=== PATIENT | male | born 1975 | race Two or more races ===

== ENCOUNTER 2023-12-20 13:08 | Inpatient (IN) | payer OTHER ==
[2023-12-20 13:51] VITALS: BMI 37.1
[2023-12-20] MEDS ORDERED: MAG HYDROX/AL HYDROX/SIMETH 30 ML UNIT-DOSE CUP PO PRN (16:26)
[2023-12-20] MEDS ORDERED: LOPERAMIDE HCL 2 MG CAPSULE PO PRN (16:26)
[2023-12-20] MEDS ORDERED: NALOXONE (NYS OPIOID OVERDOSE PROGRAM) 4 MG/0.1 ML SPRAY NS PRN (16:26)
[2023-12-20] MEDS ORDERED: guaiFENesin 600 MG TABLET.ER (FP) PO PRN (16:26)
[2023-12-20] MEDS ORDERED: hydrOXYzine PAMOATE 25 MG CAPSULE (FP) PO PRN (16:26)
[2023-12-20] MEDS ORDERED: IBUPROFEN 400 MG TABLET (FP) PO PRN (16:26)
[2023-12-20] MEDS ORDERED: BISMUTH SUBSALICYLATE 524 MG/30 ML PO PRN (16:26)
[2023-12-20] MEDS ORDERED: MAGNESIUM HYDROX 2400MG/30ML ORAL SUSPENSION 30 ML CUP PO PRN (16:26)
[2023-12-20] MEDS ORDERED: IBUPROFEN 600 MG TABLET (FP) PO PRN (16:26)
[2023-12-20] MEDS ORDERED: ONDANSETRON *ODT* 4 MG TABLET SL PRN (16:26)
[2023-12-20] MEDS ORDERED: BENZOCAINE/MENTHOL (CHLORASEPTIC ) LOZENGE MM PRN (16:26)
[2023-12-20] MEDS ORDERED: POLYETHYLENE GLYCOL (HEALTHYLAX) 3350 17 GM PACKET PO PRN (16:26)
[2023-12-20] MEDS ORDERED: BENZONATATE 200 MG CAPSULE PO PRN (16:26)
[2023-12-20] MEDS ORDERED: NALOXONE (NARCAN) HCL 4 MG/0.1 ML SPRAY NS PRN (16:26)
[2023-12-20] MEDS ORDERED: chlordiazePOXIDE HCL 25 MG CAPSULE PO PRN (16:31)
[2023-12-20] MEDS ORDERED: ACETAMINOPHEN 325 MG TABLET (FP) PO PRN (16:33)
[2023-12-20] MEDS ORDERED: ACETAMINOPHEN 325 MG TABLET (FP) ONE (17:20)
[2023-12-20] MEDS ORDERED: METOPROLOL TARTRATE 25 MG TABLET (FP) ONE (17:21)
[2023-12-20] MEDS ORDERED: PRENATAL VITAMINS W/ FOLIC ACID TABLET (FP) PO ONE (17:21)
[2023-12-20] MEDS ORDERED: ONDANSETRON *ODT* 4 MG TABLET ONE (17:21)
[2023-12-20] MEDS: ACETAMINOPHEN 325 MG TABLET (FP) PO ONE (17:26)
[2023-12-20] MEDS: PRENATAL VITAMINS W/ FOLIC ACID TABLET (FP) PO SCH (17:27)
[2023-12-20] MEDS: ONDANSETRON *ODT* 4 MG TABLET SL ONE (17:28)
[2023-12-20] MEDS: FUROSEMIDE 20 MG TABLET (FP) PO SCH (17:48)
[2023-12-20] MEDS: PANTOPRAZOLE 20 MG TABLET PO SCH (17:48)
[2023-12-20] MEDS ORDERED: ALBUTEROL SO4 HFA INHALER IH PRN (19:35)
[2023-12-20] MEDS: ACETAMINOPHEN 325 MG TABLET (FP) PO PRN (21:54)
[2023-12-20] MEDS: METHOCARBAMOL 500 MG TABLET PO PRN (21:54)
[2023-12-20] MEDS: APIXABAN 5 MG TABLET PO SCH (21:54)
[2023-12-20] MEDS: GABAPENTIN 300 MG CAPSULE PO SCH (21:54)
[2023-12-20] MEDS: MELATONIN 5 MG TABLETS PO SCH (21:55)
[2023-12-20] MEDS: THIAMINE 100 MG TABLET PO SCH (21:55)
[2023-12-20] MEDS: chlordiazePOXIDE HCL 25 MG CAPSULE PO SCH (22:09)
[2023-12-21] MEDS: FLU VACCINE (FLULAVAL) PF 45 MCG/0.5 ML SYRINGE 2024-2025 IM ONE (10:30)
[2023-12-21] MEDS: amLODIPine BESYLATE 5 MG TABLET (FP) PO SCH (10:30)
[2023-12-21] MEDS: NALTREXONE HCL 50 MG TABLET PO SCH (10:33)
[2023-12-21] MEDS: SERTRALINE HCL 50 MG TABLET (FP) PO SCH (11:59)
[2023-12-21] MEDS: DICYCLOMINE HCL 10 MG CAPSULE PO PRN (16:16)
[2023-12-21 17:16] VITALS: BP 145/101; PULSE 80; RESP 16; TEMP 98
[2023-12-21 17:42] LABS: HEMATOCRIT 48.5 % (35.4-49); HEMOGLOBIN 16.5 GM/dL (11.7-16.9); MCH 35.8 pg (25.7-33.7); MCHC 34.1 g/dl (32.0-35.9); MEAN CELL VOLUME 104.9 fl (80-96); MEAN PLT VOLUME 8.1 fl (7.5-11.1); PLATELET COUNT 216 10^3/uL (134-434); RBC 4.62 M/mm3 (4.00-5.60); RDW 14.7 % (11.9-15.9)
[2023-12-21 18:09] LABS: CHLORIDE 99 mmol/L (98-107); POTASSIUM 3.6 mmol/L (3.5-5.1); SODIUM 136 mmol/L (136-145)
[2023-12-21 18:20] LABS: ALBUMIN 3.7 g/dl (3.4-5.0); ANION GAP 8 mmol/L (4-13); BLOOD UREA NITROGEN 4.5 mg/dL (7-18); CO2 29 mmol/L (21-32); GLUCOSE,RANDOM 146 mg/dL (74-106)
[2023-12-21 18:23] LABS: CREATININE 1.2 mg/dL (0.55-1.3); SGOT/AST 53 U/L (15-37); SGPT/ALT 26 U/L (13-61)
[2023-12-21 18:25] LABS: BILIRUBIN,TOTAL 1.5 mg/dL (0.2-1); TOT PROT 7.6 g/dl (6.4-8.2)
[2023-12-21 18:26] LABS: ALK PHOS 150 U/L (45-117)
[2023-12-21 18:48] LABS: HIV INTERPRETATION NEGATIVE (NEGATIVE)
[2023-12-22] MEDS: chlordiazePOXIDE HCL 25 MG CAPSULE PO SCH (06:00)
[2023-12-23] MEDS ORDERED: chlordiazePOXIDE HCL 10 MG CAPSULE PO PRN
[2023-12-23] MEDS ORDERED: chlordiazePOXIDE HCL 10 MG CAPSULE PO SCH (05:00)
[2023-12-24] MEDS ORDERED: chlordiazePOXIDE HCL 10 MG CAPSULE PO SCH (05:00)
[2023-12-25] MEDS ORDERED: chlordiazePOXIDE HCL 10 MG CAPSULE PO ONE (05:00)
== END 2023-12-22 03:00 | disposition short-term general hospital (02) | DRG 775 ==
LOC: YASAS 13:08 → Y3N 17:03
PROVIDERS: ADMIT Allergy & Immunology; ATTEND Surgery
PROC: HZ2ZZZZ Detoxification Services for Substance Abuse Treatment (ICD-10-PCS; principal; 2023-12-20)
DX: F10.230 Alcohol dependence with withdrawal, uncomplicated (principal); F12.20 Cannabis dependence, uncomplicated; F17.210 Nicotine dependence, cigarettes, uncomplicated; I11.0 Hypertensive heart disease with heart failure; I50.9 Heart failure, unspecified; J45.909 Unspecified asthma, uncomplicated; R10.84 Generalized abdominal pain; Z86.718 Personal history of other venous thrombosis and embolism; Z86.711 Personal history of pulmonary embolism; Z79.01 Long term (current) use of anticoagulants
CPT/HCPCS: 36415; 80053; 80305; 80307; 82140; 83036; 85027; 86780; 86803; 87389; 90656; 93005; 93010; G0008; Q0162

== ENCOUNTER 2023-12-21 18:02 | Inpatient (IN) | payer OTHER ==
[2023-12-21 19:10] VITALS: BMI 36.6
[2023-12-21 20:43] LABS: BASO % 0.2 % (0-2.0); EOS % 2.1 % (0-4.5); HEMATOCRIT 45.9 % (35.4-49); HEMOGLOBIN 15.8 GM/dL (11.7-16.9); LYMPH % 11.7 % (8-40); MCH 35.3 pg (25.7-33.7); MCHC 34.5 g/dl (32.0-35.9); MEAN CELL VOLUME 102.3 fl (80-96); MEAN PLT VOLUME 7.6 fl (7.5-11.1); MONO % 8.4 % (3.8-10.2); NEUT % 77.6 % (42.8-82.8); PLATELET COUNT 184 10^3/uL (134-434); RBC 4.48 M/mm3 (4.00-5.60); RDW 14.4 % (11.9-15.9); WHITE BLOOD COUNT 9.2 K/mm3 (4.0-10.0)
[2023-12-21 20:55] LABS: POTASSIUM 3.6 mmol/L (3.5-5.1)
[2023-12-21 20:58] LABS: ALBUMIN 3.4 g/dl (3.4-5.0); CALCIUM 8.3 mg/dL (8.5-10.1); MAGNESIUM 1.5 mg/dL (1.8-2.4)
[2023-12-21 21:01] LABS: PHOSPHOROUS 3.4 mg/dL (2.5-4.9)
[2023-12-21 21:02] LABS: BILIRUBIN,TOTAL 1.7 mg/dL (0.2-1)
[2023-12-21 21:03] LABS: TOT PROT 7.1 g/dl (6.4-8.2)
[2023-12-21] MEDS ORDERED: MORPHINE SULFATE 2 MG/ML SYRINGE ONE (22:28)
[2023-12-21] MEDS: morphine CARPU-JECT 2 MG/1 ML DISP.SYRIN IVPUSH ONE (22:35)
[2023-12-21] MEDS: LACTATED RINGERS SOLUTION 1000 ML INFUS.BAG IV ONE (22:35)
[2023-12-22] MEDS ORDERED: ACETAMINOPHEN 1000 MG/100 ML BAG IVPB PRN (00:39)
[2023-12-22] MEDS ORDERED: LORazepam 1 MG TABLET PO PRN (00:42)
[2023-12-22] MEDS: SODIUM CHLORIDE 1,000 ML IV SCH (00:45)
[2023-12-22] MEDS ORDERED: ALBUTEROL SO4 HFA INHALER IH PRN (00:46)
[2023-12-22 01:31] LABS: PH,URINE 6.5 (5.0-8.0); URINE APPEARANCE CLEAR; URINE BILIRUBIN NEGATIVE (NEGATIVE); URINE COLOR YELLOW; URINE GLUCOSE (UA) NEGATIVE (NEGATIVE); URINE KETONE NEGATIVE (NEGATIVE); URINE LEUK ESTERASE TRACE (NEGATIVE); URINE NITRITE NEGATIVE (NEGATIVE); URINE PROTEIN NEGATIVE (NEGATIVE); URINE UROBILINOGEN 0.2 mg/dL (0.2-1.0)
[2023-12-22] MEDS: morphine SULFATE 4 MG/ML VIAL IVPUSH PRN (02:53)
[2023-12-22 03:38] LABS: EPI CELLS 4.3 /uL (0-25.1); HYALINE CASTS 0.41 /uL (0-3.1); URINE BACTERIA 5101.8 /uL (0-1359); URINE RBC 9.3 /uL (0-23.9)
[2023-12-22] MEDS ORDERED: SODIUM CHLORIDE 1,000 ML IV SCH ×3 (04:00→06:00)
[2023-12-22] MEDS: LORazepam 1 MG TABLET PO SCH (05:59)
[2023-12-22] MEDS: GABAPENTIN 300 MG CAPSULE PO SCH (06:00)
[2023-12-22] MEDS: LORazepam 2 MG TABLET PO SCH (07:29)
[2023-12-22 09:13] LABS: HEMATOCRIT 44.4 % (35.4-49); MCH 35.4 pg (25.7-33.7); MCHC 33.8 g/dl (32.0-35.9); MEAN CELL VOLUME 104.7 fl (80-96); MEAN PLT VOLUME 7.7 fl (7.5-11.1); PLATELET COUNT 169 10^3/uL (134-434); RBC 4.24 M/mm3 (4.00-5.60); RDW 14.3 % (11.9-15.9); WHITE BLOOD COUNT 8.3 K/mm3 (4.0-10.0)
[2023-12-22] MEDS: APIXABAN 5 MG TABLET PO SCH (09:28)
[2023-12-22] MEDS: amLODIPine BESYLATE 5 MG TABLET (FP) PO SCH (09:28)
[2023-12-22] MEDS: PANTOPRAZOLE 20 MG TABLET PO SCH (09:28)
[2023-12-22] MEDS: SERTRALINE HCL 50 MG TABLET (FP) PO SCH (09:28)
[2023-12-22] MEDS: FOLIC ACID 1 MG TABLET (FP) PO SCH (09:28)
[2023-12-22] MEDS: THIAMINE 100 MG TABLET PO SCH (09:28)
[2023-12-22 09:35] LABS: POTASSIUM 3.3 mmol/L (3.5-5.1)
[2023-12-22 09:38] LABS: ALBUMIN 3.2 g/dl (3.4-5.0); BLOOD UREA NITROGEN 5.1 mg/dL (7-18); CALCIUM 8.9 mg/dL (8.5-10.1); MAGNESIUM 1.7 mg/dL (1.8-2.4)
[2023-12-22 09:41] LABS: CREATININE 0.9 mg/dL (0.55-1.3)
[2023-12-22 09:42] LABS: PHOSPHOROUS 3.6 mg/dL (2.5-4.9)
[2023-12-22 09:43] LABS: BILIRUBIN,TOTAL 1.8 mg/dL (0.2-1); TOT PROT 6.7 g/dl (6.4-8.2)
[2023-12-22] MEDS: MAGNESIUM SULFATE IN WATER 2 GM/50 ML IVPB IVPB ONE (10:49)
[2023-12-22] MEDS: NALTREXONE HCL 50 MG TABLET PO SCH (10:50)
[2023-12-22] MEDS: SODIUM CHLORIDE 0.9%/KCL 20 MEQ/1,000 ML INFUS.BAG IV SCH (12:07)
[2023-12-22] MEDS: ACETAMINOPHEN 1000 MG/100 ML BAG IVPB PRN (17:53)
[2023-12-23] MEDS: LORazepam 1 MG TABLET PO SCH (05:33)
[2023-12-23 08:17] LABS: BASO % 0.3 % (0-2.0); EOS % 3.8 % (0-4.5); HEMATOCRIT 42.1 % (35.4-49); HEMOGLOBIN 14.6 GM/dL (11.7-16.9); LYMPH % 16.8 % (8-40); MCH 36.2 pg (25.7-33.7); MCHC 34.8 g/dl (32.0-35.9); MEAN CELL VOLUME 104.2 fl (80-96); MEAN PLT VOLUME 7.5 fl (7.5-11.1); MONO % 7.3 % (3.8-10.2); NEUT % 71.8 % (42.8-82.8); PLATELET COUNT 177 10^3/uL (134-434); RBC 4.04 M/mm3 (4.00-5.60); RDW 14.4 % (11.9-15.9); WHITE BLOOD COUNT 7.5 K/mm3 (4.0-10.0)
[2023-12-23 08:32] LABS: POTASSIUM 4.1 mmol/L (3.5-5.1)
[2023-12-23 08:34] LABS: ALBUMIN 3.2 g/dl (3.4-5.0); BLOOD UREA NITROGEN 6.5 mg/dL (7-18); CALCIUM 8.3 mg/dL (8.5-10.1)
[2023-12-23 08:38] LABS: CREATININE 0.7 mg/dL (0.55-1.3)
[2023-12-23 08:39] LABS: TOT PROT 6.8 g/dl (6.4-8.2)
[2023-12-23] MEDS ORDERED: KETOROLAC TROMETHAMINE 30 MG/1 ML VIAL IVPUSH PRN (09:33)
[2023-12-23] MEDS: ACETAMINOPHEN 325 MG TABLET (FP) PO PRN (11:16)
[2023-12-23 21:21] VITALS: RESP 18
[2023-12-24] MEDS ORDERED: LORazepam 0.5 MG TABLET PO PRN
[2023-12-24] MEDS: LORazepam 0.5 MG TABLET PO SCH (06:38)
[2023-12-24] MEDS: FUROSEMIDE 20 MG TABLET (FP) PO SCH (10:30)
[2023-12-24] MEDS: CEFTRIAXONE 1 GM in DEXTROSE 5%-WATER - 50 ML IVPB SCH (14:52)
[2023-12-24 15:56] VITALS: BP 131/70; PULSE 60; TEMP 98.2
[2023-12-24] MEDS ORDERED: CEFPODOXIME PROXETIL 100 MG TABLET PO SCH (22:00)
[2023-12-25] MEDS ORDERED: LORazepam 0.5 MG TABLET PO ONE (05:00)
== END 2023-12-24 16:05 | disposition home or self-care (01) | DRG 282 ==
LOC: JER 18:02 → JERBED 23:37 → J7W 12-22 01:57
PROVIDERS: ADMIT Internal Medicine; ATTEND Internal Medicine
PROC: HZ2ZZZZ Detoxification Services for Substance Abuse Treatment (ICD-10-PCS; principal; 2023-12-21)
DX: K85.20 Alcohol induced acute pancreatitis without necrosis or infection (principal); I11.0 Hypertensive heart disease with heart failure; I50.32 Chronic diastolic (congestive) heart failure; F10.239 Alcohol dependence with withdrawal, unspecified; E83.42 Hypomagnesemia; Z68.36 Body mass index [BMI] 36.0-36.9, adult; E66.9 Obesity, unspecified; F32.A Depression, unspecified; B96.20 Unspecified Escherichia coli [E. coli] as the cause of diseases classified elsewhere; J45.909 Unspecified asthma, uncomplicated; N39.0 Urinary tract infection, site not specified; Z86.718 Personal history of other venous thrombosis and embolism; Z86.711 Personal history of pulmonary embolism
CPT/HCPCS: 36415; 71046-TC-FY; 74177-TC; 80053; 80061; 81003; 83605; 83690; 83735; 84100; 84484; 85025; 85027; 86704; 86705; 86708; 86709; 86803; 87086; 87186; 87340; 87517; 93005; 93010; 99285-25; J0131; Q9967